=== PATIENT | female | born 1985 | race Caucasian/White ===

== ENCOUNTER 2019-10-08 23:45 | Emergency (ER) | payer OTHER ==
[2019-10-08 23:52] VITALS: RESP 18
[2019-10-09] MEDS ORDERED: IBUPROFEN 600 MG TAB PO STA (00:43)
[2019-10-09] MEDS: SODIUM CHLORIDE 0.9% 500 ML 500 ML IV SCH ×3 (01:04→04:01)
[2019-10-09 01:10] LABS: Basophils % (A) 0 %; Eosinophils % (A) 0 %; HCT 33.6 % (34.0-46.0); HGB 11.2 gm/dL (11.4-16.0); Lymphocytes # (A) 0.7 k/uL (1.0-4.8); Lymphocytes % (A) 14 %; MCH 26.5 pg (25.0-35.0); MCHC 33.5 g/dL (31.0-37.0); MCV 79.3 fL (80.0-100.0); Mean Platelet Volume 8.6; Monocytes # (A) 0.3 k/uL (0-1.0); Monocytes % (A) 5 %; Neutrophils % (A) 79 %; Platelet Count 111 k/uL (150-450); RBC 4.23 m/uL (3.80-5.40); WBC 5.1 k/uL (3.8-10.6)
[2019-10-09 01:20] LABS: ALT 17 U/L (9-52); AST 23 U/L (14-36); African American GFR (CKD) >90 (>60 ml/min/1.73 sqM); Albumin 3.4 g/dL (3.5-5.0); Alkaline Phosphatase 69 U/L (38-126); Anion Gap 7 mmol/L; Blood Urea Nitrogen 8 mg/dL (7-17); Calcium 9.2 mg/dL (8.4-10.2); Carbon Dioxide 24 mmol/L (22-30); Chloride 108 mmol/L (98-107); Glucose 122 mg/dL (74-99); Non-African American GFR(CKD) >90 (>60 ml/min/1.73 sqM); Potassium 3.7 mmol/L (3.5-5.1); Sodium 139 mmol/L (137-145); Total Bilirubin 0.2 mg/dL (0.2-1.3); Total Protein 6.3 g/dL (6.3-8.2)
[2019-10-09 01:22] LABS: Appearance,Urine Clear (Clear); Bilirubin,Urine Negative (Negative); Blood,Urine Negative (Negative); Color,Urine Light Yellow; Glucose,Urine (UA) Negative (Negative); Ketones,Urine Negative (Negative); Leukocyte Esterase,Urine Negative (Negative); Nitrite,Urine Negative (Negative); PH, Urine 7.5 (5.0-8.0); Protein,Urine Negative (Negative); Specific Gravity,Urine 1.011 (1.001-1.035); Urobilinogen,Urine <2.0 mg/dL (<2.0)
[2019-10-09 01:25] LABS: INR 0.9 (<1.2); Partial Thromboplastin Time 23.4 sec (22.0-30.0); Prothrombin Time 9.8 sec (9.0-12.0)
--- NOTE | 2019-10-09 01:33 | ED ---
General Adult HPI - General Chief complaint: Upper Respiratory Infection Stated complaint: Abdominal Pain, headache Time Seen by Provider: 10/08/19 23:59 Source: patient Mode of arrival: ambulatory Limitations: no limitations - History of Present Illness Initial comments: Dariana is a 33-year-old female who presents the emergency department today from [place] for evaluation of fevers chills, body aches, nonproductive cough and concern that she has the flu because she is currently living at [facility]. Patient also states concern for pelvic inflammatory disease because she's having pelvic pain and malodorous vaginal discharge. She reports she believes her previous partner was unfaithful. - Related Data Previous Rx's Medication Instructions Recorded Doxycycline [Vibramycin] 100 mg PO BID #14 cap 10/09/19 Allergies Allergy/AdvReac Type Severity Reaction Status Date / Time No Known Allergies Allergy Verified 10/08/19 23:52 Review of Systems ROS Statement: Those systems with pertinent positive or pertinent negative responses have been documented in the HPI. ROS Other: All systems not noted in ROS Statement are negative. Past Medical History Past Medical History: Hypertension Past Surgical History: No Surgical Hx Reported Past Psychological History: Anxiety Smoking Status: Current every day smoker Past Alcohol Use History: None Reported Past Drug Use History: None Reported General Exam - General Exam Comments Initial Comments: Physical Exam GENERAL: Febrile, appears uncomfortable, flu like HENT: Normocephalic, Atraumatic. EYES: PERRL, EOMI PULMONARY: Unlabored respirations. No audible rales rhonchi or wheezing was noted. CARDIOVASCULAR: Tachycardic, regular ABDOMEN: Soft and nontender with normal bowel sounds. SKIN: Skin is clear with no lesions or rashes and otherwise unremarkable. : Normal external genitalia Pelvic exam with scant discharge No cervical motion tenderness No pain with evaluation NEUROLOGIC: Patient is alert and oriented x3. Moving all extremities spontaneously MUSCULOSKELETAL: Normal extremities with adequate strength and full range of motion. No lower extremity swelling or edema. No calf tenderness. PSYCHIATRIC: Normal psychiatric evaluation. Limitations: no limitations Course Vital Signs 10/08/19 10/09/19 10/09/19 23:48 01:36 04:21 Temperature 100.8 F H 98.8 F Pulse Rate 90 92 Respiratory 18 18 18 Rate Blood Pressure 179/112 158/88 O2 Sat by Pulse 97 98 Oximetry Medical Decision Making - Medical Decision Making Patient was seen and evaluated history is concerning for influenza however upon further questioning patient does express concern for exposure sexual transmitted infections and requests testing and treatment for this as well. Given that the patient is febrile though we have a cause being influenza we cannot rule out PID which is the patient's concern therefore septic workup and ultrasound were ordered. Pelvic exam revealed only scant discharge strawberry cervix, no pain with pelvic exam. Ultrasound was unremarkable Labs are consistent with influenza She was treated empirically for social transmitted infections and discharged back to [place] for further management of opiate withdrawal and supportive care of influenza. - Lab Data Result diagrams: 10/09/19 00:05 10/09/19 00:05 Lab Results 10/08/19 10/09/19 10/09/19 Range/Units 23:54 00:05 00:05 WBC 5.1 (3.8-10.6) k/uL RBC 4.23 (3.80-5.40) m/uL Hgb 11.2 L (11.4-16.0) gm/dL Hct 33.6 L (34.0-46.0) % MCV 79.3 L (80.0-100.0) fL MCH 26.5 (25.0-35.0) pg MCHC 33.5 (31.0-37.0) g/dL RDW 14.0 (11.5-15.5) % Plt Count 111 L (150-450) k/uL Neutrophils % 79 % Lymphocytes % 14 % Monocytes % 5 % Eosinophils % 0 % Basophils % 0 % Neutrophils # 4.0 (1.3-7.7) k/uL Lymphocytes # 0.7 L (1.0-4.8) k/uL Monocytes # 0.3 (0-1.0) k/uL Eosinophils # 0.0 (0-0.7) k/uL Basophils # 0.0 (0-0.2) k/uL PT (9.0-12.0) sec INR (<1.2) APTT (22.0-30.0) sec Sodium 139 (137-145) mmol/L Potassium 3.7 (3.5-5.1) mmol/L Chloride 108 H (98-107) mmol/L Carbon Dioxide 24 (22-30) mmol/L Anion Gap 7 mmol/L BUN 8 (7-17) mg/dL Creatinine 0.73 (0.52-1.04) mg/dL Est GFR (CKD-EPI)AfAm >90 (>60 ml/min/1.73 sqM) Est GFR (CKD-EPI)NonAf >90 (>60 ml/min/1.73 sqM) Glucose 122 H (74-99) mg/dL Plasma Lactic Acid Chandana (0.7-2.0) mmol/L Calcium 9.2 (8.4-10.2) mg/dL Total Bilirubin 0.2 (0.2-1.3) mg/dL AST 23 (14-36) U/L ALT 17 (9-52) U/L Alkaline Phosphatase 69 (38-126) U/L Total Protein 6.3 (6.3-8.2) g/dL Albumin 3.4 L (3.5-5.0) g/dL Urine Color Urine Appearance (Clear) Urine pH (5.0-8.0) Ur Specific [place] (1.001-1.035) Urine Protein (Negative) Urine Glucose (UA) (Negative) Urine Ketones (Negative) Urine Blood (Negative) Urine Nitrite (Negative) Urine Bilirubin (Negative) Urine Urobilinogen (<2.0) mg/dL Ur Leukocyte Esterase (Negative) Influenza Type A RNA Detected H (Not Detectd) Influenza Type B (PCR) Not Detected (Not Detectd) Trichomonas Ag (Rapid) (Negative) 10/09/19 10/09/19 10/09/19 Range/Units 00:05 00:05 00:05 WBC (3.8-10.6) k/uL RBC (3.80-5.40) m/uL Hgb (11.4-16.0) gm/dL Hct (34.0-46.0) % MCV (80.0-100.0) fL MCH (25.0-35.0) pg MCHC (31.0-37.0) g/dL RDW (11.5-15.5) % Plt Count (150-450) k/uL Neutrophils % % Lymphocytes % % Monocytes % % Eosinophils % % Basophils % % Neutrophils # (1.3-7.7) k/uL Lymphocytes # (1.0-4.8) k/uL Monocytes # (0-1.0) k/uL Eosinophils # (0-0.7) k/uL Basophils # (0-0.2) k/uL PT 9.8 (9.0-12.0) sec INR 0.9 (<1.2) APTT 23.4 (22.0-30.0) sec Sodium (137-145) mmol/L Potassium (3.5-5.1) mmol/L Chloride (98-107) mmol/L Carbon Dioxide (22-30) mmol/L Anion Gap mmol/L BUN (7-17) mg/dL Creatinine (0.52-1.04) mg/dL Est GFR (CKD-EPI)AfAm (>60 ml/min/1.73 sqM) Est GFR (CKD-EPI)NonAf (>60 ml/min/1.73 sqM) Glucose (74-99) mg/dL Plasma Lactic Acid Chandana 1.6 (0.7-2.0) mmol/L Calcium (8.4-10.2) mg/dL Total Bilirubin (0.2-1.3) mg/dL AST (14-36) U/L ALT (9-52) U/L Alkaline Phosphatase (38-126) U/L Total Protein (6.3-8.2) g/dL Albumin (3.5-5.0) g/dL Urine Color Light Yellow Urine Appearance Clear (Clear) Urine pH 7.5 (5.0-8.0) Ur Specific [place] 1.011 (1.001-1.035) Urine Protein Negative (Negative) Urine Glucose (UA) Negative (Negative) Urine Ketones Negative (Negative) Urine Blood Negative (Negative) Urine Nitrite Negative (Negative) Urine Bilirubin Negative (Negative) Urine Urobilinogen <2.0 (<2.0) mg/dL Ur Leukocyte Esterase Negative (Negative) Influenza Type A RNA (Not Detectd) Influenza Type B (PCR) (Not Detectd) Trichomonas Ag (Rapid) (Negative) 10/09/19 Range/Units 03:50 WBC (3.8-10.6) k/uL RBC (3.80-5.40) m/uL Hgb (11.4-16.0) gm/dL Hct (34.0-46.0) % MCV (80.0-100.0) fL MCH (25.0-35.0) pg MCHC (31.0-37.0) g/dL RDW (11.5-15.5) % Plt Count (150-450) k/uL Neutrophils % % Lymphocytes % % Monocytes % % Eosinophils % % Basophils % % Neutrophils # (1.3-7.7) k/uL Lymphocytes # (1.0-4.8) k/uL Monocytes # (0-1.0) k/uL Eosinophils # (0-0.7) k/uL Basophils # (0-0.2) k/uL PT (9.0-12.0) sec INR (<1.2) APTT (22.0-30.0) sec Sodium (137-145) mmol/L Potassium (3.5-5.1) mmol/L Chloride (98-107) mmol/L Carbon Dioxide (22-30) mmol/L Anion Gap mmol/L BUN (7-17) mg/dL Creatinine (0.52-1.04) mg/dL Est GFR (CKD-EPI)AfAm (>60 ml/min/1.73 sqM) Est GFR (CKD-EPI)NonAf (>60 ml/min/1.73 sqM) Glucose (74-99) mg/dL Plasma Lactic Acid Chandana (0.7-2.0) mmol/L Calcium (8.4-10.2) mg/dL Total Bilirubin (0.2-1.3) mg/dL AST (14-36) U/L ALT (9-52) U/L Alkaline Phosphatase (38-126) U/L Total Protein (6.3-8.2) g/dL Albumin (3.5-5.0) g/dL Urine Color Urine Appearance (Clear) Urine pH (5.0-8.0) Ur Specific [place] (1.001-1.035) Urine Protein (Negative) Urine Glucose (UA) (Negative) Urine Ketones (Negative) Urine Blood (Negative) Urine Nitrite (Negative) Urine Bilirubin (Negative) Urine Urobilinogen (<2.0) mg/dL Ur Leukocyte Esterase (Negative) Influenza Type A RNA (Not Detectd) Influenza Type B (PCR) (Not Detectd) Trichomonas Ag (Rapid) Negative (Negative) Disposition Clinical Impression: Influenza Disposition: HOME SELF-CARE Condition: Stable Instructions (If sedation given, give patient instructions): Influenza (DC) Prescriptions: Doxycycline [Vibramycin] 100 mg PO BID #14 cap Is patient prescribed a controlled substance at d/c from ED?: No Referrals: Nonstaff,Physician [Primary Care Provider] - 1-2 days
--- NOTE | 2019-10-09 02:36 | US ---
EXAM: US Pelvis Transvaginal CLINICAL HISTORY: ITS.REASON US Reason: pelvic pain - concern for PID TECHNIQUE: Real-time transvaginal pelvic ultrasound with image documentation. Transvaginal imaging was used for better evaluation of the endometrium and adnexa. COMPARISON: No relevant prior studies available. FINDINGS: Uterus/cervix: 9.6 cm. Normal endometrial stripe thickness at 8 mm. No myometrial mass. Prominent periuterine vessels. Right ovary: 3.8 cm. No mass. Normal blood flow. Left ovary: 2.8 cm. No mass. Normal blood flow. Free fluid: Fluid in the cul-de-sac. IMPRESSION: 1. Prominent periuterine vessels are seen, can be seen with pelvic congestion syndrome. 2. Trace pelvic free fluid. 3. No abscess or torsion.
[2019-10-09] MEDS ORDERED: cefTRIAXone 250 MG VIAL IM STA (03:47)
[2019-10-09] MEDS ORDERED: DOXYCYCLINE 100 MG CAP PO STA (03:47)
[2019-10-09 04:22] VITALS: BP 158/88; PULSE 92; TEMP 98.8
[2019-10-10 14:44] LABS: N. gonorrhoeae,PCR Negative (Neg,Equiv); Neisseria Source Urine
[2019-10-10 15:05] LABS: C. trachomatis,PCR Negative (Neg,Equiv); Chlamydia trachomatis Source Urine
== END 2019-10-09 04:23 | disposition home or self-care (01) ==
LOC: EC 23:45
DX: J11.1 Influenza due to unidentified influenza virus with other respiratory manifestations (principal); A64 Unspecified sexually transmitted disease; F11.23 Opioid dependence with withdrawal; R00.0 Tachycardia, unspecified; F17.200 Nicotine dependence, unspecified, uncomplicated
CPT/HCPCS: 36415; 80053; 83605; 85025; 85610; 85730; 81003; 87040; 87808; 87491; 87591; 87070; 87502; 93975; 76830; 99284; 96372; J0696

== ENCOUNTER 2020-04-22 14:48 | Emergency (ER) | payer OTHER ==
[2020-04-22 15:29] VITALS: RESP 18; TEMP 98.5
[2020-04-22 16:39] LABS: Appearance,Urine Cloudy (Clear); Bacteria,Urine Moderate /hpf; Bilirubin,Urine Negative (Negative); Blood,Urine Moderate (Negative); Color,Urine Yellow; Glucose,Urine (UA) Negative (Negative); Ketones,Urine Negative (Negative); Leukocyte Esterase,Urine Moderate (Negative); Mucus,Urine Many /hpf; Nitrite,Urine Positive (Negative); Protein,Urine 1+ (Negative); RBC,Urine 1 /hpf (0-5); Specific Gravity,Urine 1.019 (1.001-1.035); Squamous Epithelial Cell,Urine 2 /hpf (0-4); WBC,Urine 43 /hpf (0-5)
[2020-04-22] MEDS ORDERED: cefTRIAXone 1,000 MG VIAL (IM USE) IM STA (16:51)
[2020-04-22] MEDS ORDERED: AZITHROMYCIN 500 MG TAB PO STA (16:51)
[2020-04-22] MEDS ORDERED: CEPHALEXIN 500MG STARTER PACK 4 CAP BTL PO STA (18:00)
--- NOTE | 2020-04-22 18:01 | ED ---
General Adult HPI - General Source: patient, RN notes reviewed, old records reviewed Mode of arrival: ambulatory Limitations: no limitations <Sim Jaffe - Last Filed: 04/22/20 17:59> <Citlaly Vazquez - Last Filed: 04/26/20 02:14> - General Chief complaint: Urogenital Stated complaint: not feeling well Time Seen by Provider: 04/22/20 15:49 - History of Present Illness Initial comments: 34-year-old female patient presents to ED for evaluation of STD exposure. Patient reports that her significant other told her that he tested positive for either gonorrhea or chlamydia. She reports that she did have a small amount of vaginal discharge initially but denies any today. Patient reports that she started her menses today. Denies abdominal pain. Patient does also report that her nurse throat has been sore today. Denies any other complaints. Denies any chance of being . Systemic: Pt denies fatigue, fever/chills, rash. Pt denies weakness, night sweats, weight loss. Neuro: Pt denies headache, visual disturbances, syncope or pre-syncope. HEENT: Pt denies ocular discharge or irritation, otalgia, rhinorrhea, or notable lymphadenopathy. Cardiopulmonary: Pt denies chest pain, SOB, heart palpitations, dyspnea on exertion. Abdominal/GI: Pt denies abdominal pain, n/v/d. : Pt denies dysuria. Denies new onset urinary or bowel incontinence. MSK: Pt denies myalgia, loss of strength or function in extremities. Neuro: Pt denies new onset weakness, paresthesias. (Sim Jaffe) - Related Data Previous Rx's Medication Instructions Recorded Doxycycline [Vibramycin] 100 mg PO BID #14 cap 10/09/19 Cephalexin [Keflex] 500 mg PO Q6HR 10 Days #40 cap 04/22/20 Nitrofurantoin Monohyd/M-Cryst 100 mg PO Q12HR #14 cap 04/25/20 [Macrobid] Allergies Allergy/AdvReac Type Severity Reaction Status Date / Time No Known Allergies Allergy Verified 04/22/20 15:29 Review of Systems ROS Other: All systems not noted in ROS Statement are negative. <Sim Jaffe - Last Filed: 04/22/20 17:59> ROS Other: All systems not noted in ROS Statement are negative. <Huy Vazquezah Marlena - Last Filed: 04/26/20 02:14> ROS Statement: Those systems with pertinent positive or pertinent negative responses have been documented in the HPI. Past Medical History Past Medical History: Hypertension History of Any Multi-Drug Resistant Organisms: None Reported Past Surgical History: No Surgical Hx Reported Past Psychological History: Anxiety Smoking Status: Current every day smoker Past Alcohol Use History: Occasional Past Drug Use History: None Reported <Sim Jaffe - Last Filed: 04/22/20 17:59> General Exam Limitations: no limitations <Sim Jaffe - Last Filed: 04/22/20 17:59> - General Exam Comments Initial Comments: Constitutional: NAD, AOX3, Pt has pleasant affect. HEENT: NC/AT, trachea midline, neck supple, no lymphadenopathy. Posterior pharynx non erythematous, without exudates. External ears appear normal, without discharge. Mucous membranes moist. Eyes PERRLA, EOM intact. There is no scleral icterus. No pallor noted. Cardiopulmonary: RRR, no murmurs, rubs or gallops, no JVD noted. Lungs CTAB in anterior and posterior mcleod. No peripheral edema. Abdominal exam: Abdomen soft and non-distended. Abdomen non-tender to palpation in all 4 quadrants. Bowel sounds active in LLQ. No hepatosplenomegaly. No ecchymosis Neuro: CN II-XII grossly intact. No nuchal rigidity. No raccon eyes, no vega sign. MSK: Full active ROM in upper and lower extremities, 5/5 stregnth. (Sim Jaffe) Course Vital Signs 04/22/20 04/22/20 04/22/20 15:25 18:25 18:54 Temperature 98.5 F Pulse Rate 93 89 Respiratory 18 18 Rate Blood Pressure 149/89 159/114 O2 Sat by Pulse 99 100 Oximetry Medical Decision Making <Sim Jaffe - Last Filed: 04/22/20 17:59> <Citlaly Vazquez - Last Filed: 04/26/20 02:14> - Medical Decision Making 34-year-old female patient presents to ED for evaluation of STD exposure. Patient reports that her significant other told her that he tested positive for either gonorrhea or chlamydia. She reports that she did have a small amount of vaginal discharge initially but denies any today. Patient reports that she started her menses today. Denies abdominal pain. Patient does also report that her nurse throat has been sore today. Denies any other complaints. Denies any chance of being . Patient felt tender stable, afebrile. Physical exam demonstrate acute pathology. Labs investigations obtained UA does displayed nitrate positive urine, group A strep was negative. Patient does wish to have empiric treatment for gonorrhea and chlamydia. Patient is declining pelvic exam. Patient was administered Rocephin and azithromycin. Patient discharged with 4 times a day for 10 days and will have close patient follow-up with primary care provider and return precautions. Case discussed with Dr. Vazquez. (Sim Jaffe) I was available for consultation in the emergency department. The history and physical exam were done by the midlevel provider. I was consulted for this patients care. I reviewed the case with the midlevel provider and based on their presentation of the patient, I agree with the assessment, medical decision making and plan of care as documented. Chart was dictated using [employer] dictation software. Attempts were made to correct any dictation errors however some typographical errors may persist. Patient was seen during a national state of emergency due to the Covid-19 pandemic. (Citlaly Vazquez) - Lab Data Lab Results 04/22/20 04/22/20 04/22/20 Range/Units 16:11 16:11 16:54 Urine Color Yellow Urine Appearance Cloudy H (Clear) Urine pH 6.0 (5.0-8.0) Ur Specific [place] 1.019 (1.001-1.035) Urine Protein 1+ H (Negative) Urine Glucose (UA) Negative (Negative) Urine Ketones Negative (Negative) Urine Blood Moderate H (Negative) Urine Nitrite Positive H (Negative) Urine Bilirubin Negative (Negative) Urine Urobilinogen 2.0 (<2.0) mg/dL Ur Leukocyte Esterase Moderate H (Negative) Urine RBC 1 (0-5) /hpf Urine WBC 43 H (0-5) /hpf Ur Squamous Epith Cells 2 (0-4) /hpf Urine Bacteria Moderate H (None) /hpf Urine Mucus Many H (None) /hpf Urine HCG, Qual Not Detected (Not Detectd) Chlamydia Source Chlamydia DNA (PCR) (Neg,Equiv) N. gonorrhoeae Source N.gonorrhoeae DNA Probe (Neg,Equiv) Group A Strep Rapid Negative (Negative) 04/22/20 04/22/20 Range/Units 18:10 18:10 Urine Color Urine Appearance (Clear) Urine pH (5.0-8.0) Ur Specific [place] (1.001-1.035) Urine Protein (Negative) Urine Glucose (UA) (Negative) Urine Ketones (Negative) Urine Blood (Negative) Urine Nitrite (Negative) Urine Bilirubin (Negative) Urine Urobilinogen (<2.0) mg/dL Ur Leukocyte Esterase (Negative) Urine RBC (0-5) /hpf Urine WBC (0-5) /hpf Ur Squamous Epith Cells (0-4) /hpf Urine Bacteria (None) /hpf Urine Mucus (None) /hpf Urine HCG, Qual (Not Detectd) Chlamydia Source Urine Chlamydia DNA (PCR) Negative (Neg,Equiv) N. gonorrhoeae Source Urine N.gonorrhoeae DNA Probe Negative (Neg,Equiv) Group A Strep Rapid (Negative) Disposition Is patient prescribed a controlled substance at d/c from ED?: No <Sim Jaffe - Last Filed: 04/22/20 17:59> <Citlaly Vazquez - Last Filed: 04/26/20 02:14> Clinical Impression: UTI (urinary tract infection), Exposure to STD Disposition: HOME SELF-CARE Condition: Stable Instructions (If sedation given, give patient instructions): Sexually Transmitted Diseases (ED), Urinary Tract Infection in Women (ED) Additional Instructions: Follow-up with primary care provider tomorrow. Take medications as directed. Return to ER if condition worsens. Prescriptions: Cephalexin [Keflex] 500 mg PO Q6HR 10 Days #40 cap Nitrofurantoin Monohyd/M-Cryst [Macrobid] 100 mg PO Q12HR #14 cap Referrals: None,Stated [Primary Care Provider] - 1-2 days Arnold Alvares [STAFF PHYSICIAN] - 1-2 days
[2020-04-22 18:29] VITALS: PULSE 89
[2020-04-22 18:55] VITALS: BP 159/114
[2020-04-23 16:14] LABS: C. trachomatis,PCR Negative (Neg,Equiv); Chlamydia trachomatis Source Urine
[2020-04-23 16:20] LABS: N. gonorrhoeae,PCR Negative (Neg,Equiv); Neisseria Source Urine
== END 2020-04-22 18:55 | disposition home or self-care (01) ==
LOC: EC 14:48
DX: N39.0 Urinary tract infection, site not specified (principal); Z20.2 Contact with and (suspected) exposure to infections with a predominantly sexual mode of transmission; N93.9 Abnormal uterine and vaginal bleeding, unspecified; F17.200 Nicotine dependence, unspecified, uncomplicated
CPT/HCPCS: 81001; 81025; 87491; 87591; 87086; 87081; 87430; 96372; 99284; J0696; 87077; 87186